=== PATIENT | male | born 1990 | race Caucasian/White ===

== ENCOUNTER 2024-03-08 14:16 | Emergency (ER) | payer OTHER ==
[~2024-03-08] VITALS: Ht 180.3 cm; Wt 85.7 kg
[2024-03-08 14:16] VITALS: BP 150/100; TEMP 98.7; O2SAT 99
== END 2024-03-08 18:48 | disposition home or self-care (01) ==
LOC: ER 14:30
DX: S42.401A Unspecified fracture of lower end of right humerus, initial encounter for closed fracture (principal); V00.131A Fall from skateboard, initial encounter; Y93.89 Activity, other specified; Y92.89 Other specified places as the place of occurrence of the external cause; Y99.8 Other external cause status
CPT/HCPCS: 73030-TC; 73080-TC